=== PATIENT | female | born 1970 | race Caucasian/White ===

== ENCOUNTER 2019-01-19 11:34 | Inpatient (IN) | payer MEDICARE, OTHER ==
[~2019-01-19] VITALS: Ht 160 cm; Wt 56.2 kg
[2019-01-19 12:39] LABS: BASOPHILS % (AUTO) 0.2 % (0.0-2.0); EOSINOPHILS % (AUTO) 0.1 % (1.0-6.0); HEMATOCRIT 34.3 % (36-46); HEMOGLOBIN 11.9 g/dL (12.0-16.0); LYMPHOCYTES # (AUTO) 2.4 K/uL (1.0-4.8); LYMPHOCYTES % (AUTO) 21.2 % (22.0-44.0); MEAN CORPUSCULAR HEMOGLOBIN 33.8 pg (26.0-34.0); MEAN CORPUSCULAR HGB CONC 34.7 G/dL (31.0-37.0); MEAN CORPUSCULAR VOLUME 98 fL (80-100); MONOCYTES # (AUTO) 0.8 K/uL (0.1-1.0); MONOCYTES % (AUTO) 7.4 % (2.0-9.0); NEUTROPHILS # (AUTO) 8.1 K/uL (1.8-7.7); NEUTROPHILS % (AUTO) 71.1 % (40.0-70.0); PLATELET COUNT (AUTO) 263 K/uL (150-450); RED BLOOD CELL COUNT(AUTO) 3.52 MIL/uL (4.00-5.20); RED CELL DISTRIBUTION WIDTH 12.5 % (11.5-14.5)
[2019-01-19 13:07] LABS: ALANINE AMINOTRANSFERASE 21 U/L (12-78); ALBUMIN 3.2 g/dL (3.4-5.0); ANION GAP 12 mmol/L (8-16); ASPARTATE AMINOTRANSFERASE 31 U/L (15-37); BILIRUBIN,TOTAL 0.9 mg/dL (0.1-1.0); CALCIUM, TOTAL 8.4 mg/dL (8.8-10.5); CARBON DIOXIDE 23 mmol/L (22-29); CHLORIDE 87 mmol/L (98-107); GLOMERULAR FILTR. RATE CALC > 60 mL/min (>60); GLUCOSE,RANDOM 91 mg/dL (70-110); HCG,QUANTITATIVE < 1 mIU/mL (0-6); POTASSIUM 3.5 mmol/L (3.5-5.1); TOTAL PROTEIN, SERUM 6.1 g/dL (6.4-8.2); UREA NITROGEN, BLOOD 3 mg/dL (7-18)
[2019-01-19 13:09] LABS: SODIUM SERUM 122 mmol/L (136-145)
[2019-01-19] MEDS ORDERED: SODIUM CHLORIDE 0.9% 1,000 ML IV ONE (13:15)
[2019-01-19 13:20] LABS: ALKALINE PHOSPHATASE 49 U/L (46-116)
[2019-01-19 14:13] LABS: OSMOLALITY 256 mOS/kg (270-310)
[2019-01-19] MEDS ORDERED: ALBUTEROL SULFATE 2.5 MG/0.5 ML NEB SOLUTION NEB PRN ×2 (15:00→21:15)
[2019-01-19] MEDS ORDERED: MAGNESIUM HYDROXIDE SUSPENSION 30 ML UDCUP PO PRN (15:00)
[2019-01-19] MEDS ORDERED: DOCUSATE SODIUM 100 MG CAPSULE PO PRN (15:00)
[2019-01-19] MEDS ORDERED: 0.9% SODIUM CHLORIDE 10 ML SYRINGE IVP PRN (15:00)
[2019-01-19] MEDS ORDERED: IPRATROPIUM BROMIDE 0.5 MG/2.5 ML NEB SOLUTION NEB PRN ×2 (15:00→21:15)
[2019-01-19] MEDS ORDERED: BISACODYL 10 MG RECTAL RECTAL SUPPOSITORY PR PRN (15:00)
[2019-01-19] MEDS ORDERED: ACETAMINOPHEN 325 MG TABLET PO PRN (15:00)
[2019-01-19] MEDS ORDERED: ONDANSETRON HCL 4 MG/2 ML VIAL IVP PRN (15:00)
[2019-01-19 15:09] LABS: APPEARANCE,URINE CLOUDY (CLEAR); BILIRUBIN,URINE NEGATIVE (NEGATIVE); GLUCOSE, URINE (UA) NEGATIVE (NEGATIVE); KETONES,URINE 40 mg/dL (NEGATIVE); LEUKOCYTE ESTERASE ,URINE LARGE (NEGATIVE); NITRATE,URINE NEGATIVE (NEGATIVE); OCCULT BLOOD,URINE SMALL (NEGATIVE); PH,URINE 5.5 (5.0-8.0); PROTEIN,URINE NEGATIVE (NEGATIVE); UROBILINOGEN,URINE 0.2 mg/dL (<=1.0)
[2019-01-19 15:26] LABS: RBC,URINE 0-2 /HPF (0-2)
[2019-01-19 15:27] LABS: BACTERIA,URINE Few /HPF (None Seen); SQUAMOUS EPITHELIAL CELL,UR Few /LPF (None Seen)
[2019-01-19 15:36] LABS: OSMOLALITY,URINE 75 mOS/kg (50-1200)
[2019-01-19 15:42] LABS: SODIUM,URINE RANDOM 10 mmol/l (20-110)
[2019-01-19 15:54] LABS: AMPHET/METH SCREEN,URINE NEGATIVE (NEGATIVE); BARBITURATE SCREEN, URINE NEGATIVE (NEGATIVE); BENZODIAZEPINES SCREEN,URINE NEGATIVE (NEGATIVE); CANNABINOID SCREEN,URINE NEGATIVE (NEGATIVE); COCAINE SCREEN,URINE NEGATIVE (NEGATIVE); METHADONE SCREEN, URINE NEGATIVE (NEGATIVE); OPIATE SCREEN,URINE NEGATIVE (NEGATIVE)
[2019-01-19 16:12] VITALS: BP 108/57
[2019-01-19 16:17] LABS: PHENCYCLIDINE SCREEN,URINE NEGATIVE (NEGATIVE)
[2019-01-19 17:19] LABS: ANION GAP 9 mmol/L (8-16); CALCIUM, TOTAL 8.7 mg/dL (8.8-10.5); CARBON DIOXIDE 26 mmol/L (22-29); CHLORIDE 95 mmol/L (98-107); CREATININE 0.66 mg/dL (0.60-1.30); GLOMERULAR FILTR. RATE CALC > 60 mL/min (>60); GLUCOSE,RANDOM 91 mg/dL (70-110); POTASSIUM 3.6 mmol/L (3.5-5.1); SODIUM SERUM 130 mmol/L (136-145); UREA NITROGEN, BLOOD 3 mg/dL (7-18)
[2019-01-19 17:23] LABS: PHOSPHORUS 3.4 mg/dL (2.5-4.9)
[2019-01-19] MEDS ORDERED: MAGNESIUM SULFATE 4 GM/WATER 100 ML IV ONE (18:15)
[2019-01-19 20:02] VITALS: BP 112/62
[2019-01-19] MEDS ORDERED: DEXTROSE 5%-WATER 1,000 ML IV SCH (20:27)
[2019-01-19] MEDS: FAMOTIDINE 20 MG TABLET PO SCH (22:28)
[2019-01-20] VITALS: BP 99/41
[2019-01-20] MEDS ORDERED: POTASSIUM CHL 10 MEQ/WATER 50 ML IV PRN (03:00)
[2019-01-20 03:06] LABS: ANION GAP 6 mmol/L (8-16); CALCIUM, TOTAL 8.7 mg/dL (8.8-10.5); CARBON DIOXIDE 28 mmol/L (22-29); CHLORIDE 99 mmol/L (98-107); CREATININE 0.61 mg/dL (0.60-1.30); GLOMERULAR FILTR. RATE CALC > 60 mL/min (>60); GLUCOSE,RANDOM 135 mg/dL (70-110); POTASSIUM 3.4 mmol/L (3.5-5.1); SODIUM SERUM 133 mmol/L (136-145); UREA NITROGEN, BLOOD 2 mg/dL (7-18)
[2019-01-20] MEDS ORDERED: POTASSIUM CHLORIDE 20 MEQ ER TABLET PO PRN (03:15)
[2019-01-20] MEDS: DEXTROSE 5%-WATER 1,000 ML IV SCH ×4 (03:18→22:39)
[2019-01-20] MEDS: POTASSIUM CHL 10 MEQ/WATER 50 ML IV PRN ×3 (03:43→06:41)
[2019-01-20 05:29] VITALS: BP 92/54
[2019-01-20 07:41] LABS: BASOPHILS % (AUTO) 0.3 % (0.0-2.0); EOSINOPHILS % (AUTO) 0.5 % (1.0-6.0); HEMATOCRIT 34.9 % (36-46); HEMOGLOBIN 12.3 g/dL (12.0-16.0); LYMPHOCYTES # (AUTO) 1.9 K/uL (1.0-4.8); LYMPHOCYTES % (AUTO) 21.4 % (22.0-44.0); MEAN CORPUSCULAR HEMOGLOBIN 34.3 pg (26.0-34.0); MEAN CORPUSCULAR HGB CONC 35.2 G/dL (31.0-37.0); MEAN CORPUSCULAR VOLUME 97 fL (80-100); MONOCYTES % (AUTO) 11.8 % (2.0-9.0); NEUTROPHILS # (AUTO) 5.8 K/uL (1.8-7.7); PLATELET COUNT (AUTO) 320 K/uL (150-450); RED BLOOD CELL COUNT(AUTO) 3.59 MIL/uL (4.00-5.20)
[2019-01-20 07:43] VITALS: BP 93/56
[2019-01-20 08:07] LABS: ALANINE AMINOTRANSFERASE 19 U/L (12-78); ALBUMIN 2.7 g/dL (3.4-5.0); ALKALINE PHOSPHATASE 46 U/L (46-116); ANION GAP 6 mmol/L (8-16); ASPARTATE AMINOTRANSFERASE 31 U/L (15-37); BILIRUBIN,TOTAL 0.5 mg/dL (0.1-1.0); CALCIUM, TOTAL 8.3 mg/dL (8.8-10.5); CARBON DIOXIDE 27 mmol/L (22-29); CHLORIDE 101 mmol/L (98-107); CHOL/HDL RATIO 2.3 (3.9-5.7); CHOLESTEROL 131 mg/dL (131-200); CREATININE 0.59 mg/dL (0.60-1.30); FREE T4 (FREE THYROXINE) 1.13 ng/dL (0.76-1.46); GLOMERULAR FILTR. RATE CALC > 60 mL/min (>60); GLUCOSE,RANDOM 134 mg/dL (70-110); HDL CHOLESTEROL 58 mg/dL (40-60); LDL CHOL (CALC.) 65 mg/dL (0-130); PHOSPHORUS 2.8 mg/dL (2.5-4.9); SODIUM SERUM 134 mmol/L (136-145); THYROID STIMULATING HORMONE 1.57 uIU/mL (0.36-3.74); TOTAL PROTEIN, SERUM 5.7 g/dL (6.4-8.2); TRIGLYCERIDES 41 mg/dL (15-150); UREA NITROGEN, BLOOD 2 mg/dL (7-18)
[2019-01-20] MEDS: FAMOTIDINE 20 MG TABLET PO SCH ×2 (08:29→20:31)
[2019-01-20 11:02] VITALS: BP 96/58
[2019-01-20] MEDS ORDERED: DEXTROSE 5%-WATER 1,000 ML IV SCH (13:15)
[2019-01-20 14:35] LABS: ANION GAP 7 mmol/L (8-16); CALCIUM, TOTAL 8.5 mg/dL (8.8-10.5); CARBON DIOXIDE 27 mmol/L (22-29); CHLORIDE 102 mmol/L (98-107); CREATININE 0.56 mg/dL (0.60-1.30); GLOMERULAR FILTR. RATE CALC > 60 mL/min (>60); GLUCOSE,RANDOM 82 mg/dL (70-110); POTASSIUM 4.1 mmol/L (3.5-5.1); SODIUM SERUM 136 mmol/L (136-145); UREA NITROGEN, BLOOD 2 mg/dL (7-18)
[2019-01-20 16:04] VITALS: BP 117/61
[2019-01-20 20:23] VITALS: BP 94/56
[2019-01-21] MEDS: DEXTROSE 5%-WATER 1,000 ML IV SCH ×4 (00:30→19:56)
[2019-01-21 00:53] VITALS: BP 114/52
[2019-01-21 04:46] VITALS: BP 108/66
[2019-01-21 07:40] VITALS: BP 105/48
[2019-01-21 08:53] LABS: BASOPHILS % (AUTO) 0.5 % (0.0-2.0); EOSINOPHILS % (AUTO) 1.6 % (1.0-6.0); HEMATOCRIT 36.1 % (36-46); HEMOGLOBIN 12.7 g/dL (12.0-16.0); LYMPHOCYTES # (AUTO) 2.4 K/uL (1.0-4.8); MEAN CORPUSCULAR HGB CONC 35.1 G/dL (31.0-37.0); MEAN CORPUSCULAR VOLUME 100 fL (80-100); MONOCYTES # (AUTO) 0.8 K/uL (0.1-1.0); MONOCYTES % (AUTO) 11.8 % (2.0-9.0); NEUTROPHILS # (AUTO) 3.6 K/uL (1.8-7.7); NEUTROPHILS % (AUTO) 51.1 % (40.0-70.0); PLATELET COUNT (AUTO) 328 K/uL (150-450); RED BLOOD CELL COUNT(AUTO) 3.62 MIL/uL (4.00-5.20); RED CELL DISTRIBUTION WIDTH 13.2 % (11.5-14.5)
[2019-01-21 09:34] LABS: ANION GAP 9 mmol/L (8-16); CALCIUM, TOTAL 8.6 mg/dL (8.8-10.5); CARBON DIOXIDE 28 mmol/L (22-29); CHLORIDE 103 mmol/L (98-107); CREATININE 0.65 mg/dL (0.60-1.30); GLOMERULAR FILTR. RATE CALC > 60 mL/min (>60); GLUCOSE,RANDOM 178 mg/dL (70-110); POTASSIUM 3.7 mmol/L (3.5-5.1); SODIUM SERUM 140 mmol/L (136-145); UREA NITROGEN, BLOOD 2 mg/dL (7-18)
[2019-01-21] MEDS: FAMOTIDINE 20 MG TABLET PO SCH ×2 (10:34→19:56)
[2019-01-21 11:40] VITALS: BP 102/66
[2019-01-21 15:26] LABS: CARBON DIOXIDE 25 mmol/L (22-29); CHLORIDE 103 mmol/L (98-107); POTASSIUM 3.8 mmol/L (3.5-5.1); SODIUM SERUM 136 mmol/L (136-145)
[2019-01-21 15:27] LABS: ANION GAP 8 mmol/L (8-16); CALCIUM, TOTAL 9.1 mg/dL (8.8-10.5); CREATININE 0.47 mg/dL (0.60-1.30); GLOMERULAR FILTR. RATE CALC > 60 mL/min (>60); GLUCOSE,RANDOM 116 mg/dL (70-110); UREA NITROGEN, BLOOD 4 mg/dL (7-18)
[2019-01-21] MEDS ORDERED: PROM118S4 PO (15:57)
[2019-01-21] MEDS ORDERED: CLOZ25TA4 PO (15:57)
[2019-01-21] MEDS ORDERED: DIVA-54 PO (15:57)
[2019-01-21] MEDS ORDERED: HALO20TA7 PO (15:57)
[2019-01-21] MEDS ORDERED: LUTE20TA PO (15:57)
[2019-01-21] MEDS ORDERED: CLOZ100T31 PO (15:57)
[2019-01-21] MEDS ORDERED: GLYC1TAB11 PO (15:57)
[2019-01-21 16:15] VITALS: BP 107/64
[2019-01-21 19:46] VITALS: BP 101/59
[2019-01-21 20:37] LABS: ANION GAP 7 mmol/L (8-16); CALCIUM, TOTAL 8.8 mg/dL (8.8-10.5); CARBON DIOXIDE 28 mmol/L (22-29); CHLORIDE 107 mmol/L (98-107); CREATININE 0.43 mg/dL (0.60-1.30); GLOMERULAR FILTR. RATE CALC > 60 mL/min (>60); GLUCOSE,RANDOM 99 mg/dL (70-110); SODIUM SERUM 142 mmol/L (136-145); UREA NITROGEN, BLOOD 4 mg/dL (7-18)
[2019-01-22] VITALS (7 sets, daily range): BP systolic 97–118; BP diastolic 54–72
[2019-01-22 07:45] LABS: BASOPHILS % (AUTO) 0.7 % (0.0-2.0); HEMOGLOBIN 12.4 g/dL (12.0-16.0); LYMPHOCYTES # (AUTO) 2.5 K/uL (1.0-4.8); LYMPHOCYTES % (AUTO) 31.8 % (22.0-44.0); MEAN CORPUSCULAR HEMOGLOBIN 34.4 pg (26.0-34.0); MEAN CORPUSCULAR HGB CONC 34.4 G/dL (31.0-37.0); MEAN CORPUSCULAR VOLUME 100 fL (80-100); MONOCYTES # (AUTO) 0.8 K/uL (0.1-1.0); MONOCYTES % (AUTO) 10.3 % (2.0-9.0); NEUTROPHILS # (AUTO) 4.5 K/uL (1.8-7.7); NEUTROPHILS % (AUTO) 56.2 % (40.0-70.0); PLATELET COUNT (AUTO) 335 K/uL (150-450); RED CELL DISTRIBUTION WIDTH 13.3 % (11.5-14.5)
[2019-01-22 08:39] LABS: ANION GAP 8 mmol/L (8-16); CARBON DIOXIDE 25 mmol/L (22-29); CHLORIDE 109 mmol/L (98-107); CREATININE 0.52 mg/dL (0.60-1.30); GLOMERULAR FILTR. RATE CALC > 60 mL/min (>60); GLUCOSE,RANDOM 113 mg/dL (70-110); POTASSIUM 4.1 mmol/L (3.5-5.1); SODIUM SERUM 142 mmol/L (136-145); UREA NITROGEN, BLOOD 3 mg/dL (7-18)
[2019-01-22] MEDS: FAMOTIDINE 20 MG TABLET PO SCH ×3 (08:57→20:30)
[2019-01-22] MEDS: DEXTROSE 5%-WATER 1,000 ML IV SCH (15:07)
[2019-01-22] MEDS: DIVALPROEX SODIUM 500 MG DR TABLET PO SCH ×4 (16:00→20:30)
[2019-01-22] MEDS: CloZAPine 25 MG TABLET PO SCH ×3 (16:33→20:30)
[2019-01-22] MEDS: CloZAPine 100 MG TABLET PO SCH ×2 (20:23→20:30)
[2019-01-23 05:40] VITALS: BP 125/67
[2019-01-23 07:27] LABS: BASOPHILS % (AUTO) 0.3 % (0.0-2.0); EOSINOPHILS % (AUTO) 0.9 % (1.0-6.0); HEMATOCRIT 35.6 % (36-46); HEMOGLOBIN 12.3 g/dL (12.0-16.0); LYMPHOCYTES # (AUTO) 2.8 K/uL (1.0-4.8); LYMPHOCYTES % (AUTO) 34.9 % (22.0-44.0); MEAN CORPUSCULAR HEMOGLOBIN 34.2 pg (26.0-34.0); MEAN CORPUSCULAR HGB CONC 34.5 G/dL (31.0-37.0); MEAN CORPUSCULAR VOLUME 99 fL (80-100); MONOCYTES # (AUTO) 0.7 K/uL (0.1-1.0); MONOCYTES % (AUTO) 8.7 % (2.0-9.0); NEUTROPHILS # (AUTO) 4.5 K/uL (1.8-7.7); NEUTROPHILS % (AUTO) 55.2 % (40.0-70.0); PLATELET COUNT (AUTO) 325 K/uL (150-450); RED BLOOD CELL COUNT(AUTO) 3.58 MIL/uL (4.00-5.20); RED CELL DISTRIBUTION WIDTH 13.2 % (11.5-14.5)
[2019-01-23 07:39] LABS: ANION GAP 8 mmol/L (8-16); CARBON DIOXIDE 27 mmol/L (22-29); CHLORIDE 104 mmol/L (98-107); CREATININE 0.51 mg/dL (0.60-1.30); GLOMERULAR FILTR. RATE CALC > 60 mL/min (>60); GLUCOSE,RANDOM 102 mg/dL (70-110); POTASSIUM 3.7 mmol/L (3.5-5.1); SODIUM SERUM 139 mmol/L (136-145); UREA NITROGEN, BLOOD 4 mg/dL (7-18)
[2019-01-23 07:55] VITALS: BP 108/56
[2019-01-23] MEDS: DIVALPROEX SODIUM 500 MG DR TABLET PO SCH ×3 (09:00→21:00)
[2019-01-23] MEDS: CloZAPine 25 MG TABLET PO SCH ×3 (09:00→17:00)
[2019-01-23] MEDS: FAMOTIDINE 20 MG TABLET PO SCH ×2 (09:00→21:00)
[2019-01-23 12:06] VITALS: BP 118/67
[2019-01-23 12:53] LABS: APPEARANCE,URINE CLOUDY (CLEAR); BILIRUBIN,URINE NEGATIVE (NEGATIVE); GLUCOSE, URINE (UA) NEGATIVE (NEGATIVE); KETONES,URINE NEGATIVE (NEGATIVE); LEUKOCYTE ESTERASE ,URINE LARGE (NEGATIVE); NITRATE,URINE POSITIVE (NEGATIVE); OCCULT BLOOD,URINE SMALL (NEGATIVE); PH,URINE 6.5 (5.0-8.0); PROTEIN,URINE NEGATIVE (NEGATIVE); UROBILINOGEN,URINE 0.2 mg/dL (<=1.0)
[2019-01-23 13:45] LABS: BACTERIA,URINE Moderate /HPF (None Seen); WBC,URINE 26-50 /HPF (0-5)
[2019-01-23 13:46] LABS: SQUAMOUS EPITHELIAL CELL,UR Moderate /LPF (None Seen)
[2019-01-23] MEDS ORDERED: LORazepam 2 MG/ML VIAL IVP PRN (15:30)
[2019-01-23] MEDS ORDERED: LORazepam 2 MG/ML VIAL IM ONE (16:00)
[2019-01-23] MEDS ORDERED: DiphenhydrAMINE HCL 50 MG/ML VIAL IM ONE (16:00)
[2019-01-23] MEDS ORDERED: HALOPERIDOL LACTATE 5 MG/ML VIAL IM ONE (16:00)
[2019-01-23 16:35] VITALS: BP 114/75
[2019-01-23 19:30] VITALS: BP 116/71
[2019-01-23] MEDS: CloZAPine 100 MG TABLET PO SCH (21:00)
[2019-01-23 23:03] VITALS: BP 108/69
[2019-01-24 05:00] VITALS: BP 100/64
[2019-01-24] MEDS: CloZAPine 25 MG TABLET PO SCH ×4 (08:35→15:53)
[2019-01-24] MEDS: DIVALPROEX SODIUM 500 MG DR TABLET PO SCH ×3 (08:35→15:53)
[2019-01-24] MEDS: FAMOTIDINE 20 MG TABLET PO SCH (08:35)
[2019-01-24 08:47] VITALS: BP 107/67
[2019-01-24] MEDS ORDERED: CIPROFLOXACIN HCL 500 MG TABLET PO SCH (09:00)
[2019-01-24 11:40] VITALS: BP 110/64
[2019-01-24] MEDS ORDERED: LORazepam 2 MG/ML VIAL IM ONE (15:45)
[2019-01-24] MEDS ORDERED: DiphenhydrAMINE HCL 50 MG/ML VIAL IM ONE (15:45)
[2019-01-24] MEDS ORDERED: HALOPERIDOL LACTATE 5 MG/ML VIAL IM ONE (15:45)
[2019-01-24 16:13] VITALS: BP 107/65
[2019-01-24] MEDS ORDERED: FAMO20 PO (17:22)
== END 2019-01-24 18:35 | DRG 640 ==
LOC: EMS 11:36 → 5S 14:47
PROVIDERS: ADMIT Internal Medicine; ATTEND Internal Medicine
DX: E87.1 Hypo-osmolality and hyponatremia (principal); G92 Toxic encephalopathy; R45.851 Suicidal ideations; R65.10 Systemic inflammatory response syndrome (SIRS) of non-infectious origin without acute organ dysfunction; F20.0 Paranoid schizophrenia; E86.1 Hypovolemia; F20.9 Schizophrenia, unspecified; D63.8 Anemia in other chronic diseases classified elsewhere; F41.9 Anxiety disorder, unspecified
CPT/HCPCS: 70450; 82533; 83735; 83930; 83935; 84100; 84132; 84145; 84295; 84300; 84439; 84443; 87086; 93005; 96365; G0378; G0480; J1200; J1630; J2060; J3475; J3480; J7060

== ENCOUNTER 2019-01-24 18:45 | Inpatient (IN) | payer MEDICARE, MEDICAID ==
[~2019-01-24] VITALS: Ht 160 cm; Wt 58.8 kg
[~2019-01-24 18:45] MED LIST: CLOZ100T31 PO; CLOZ25TA4 PO; DIVA-54 PO; FAMO20 PO; GLYC1TAB11 PO; HALO20TA7 PO; LUTE20TA PO; PROM118S4 PO
[2019-01-24] MEDS: CloZAPine 100 MG TABLET PO SCH (20:38)
[2019-01-24] MEDS: DIVALPROEX SODIUM 500 MG DR TABLET PO SCH (20:38)
[2019-01-24] MEDS ORDERED: INFLUENZA VIRUS VACCINE QVS 2019-20 (3YR+)/PF 60 MCG/0.5 ML SYRINGE IM ONE (21:15)
[2019-01-25 08:00] VITALS: BP 113/84
[2019-01-25] MEDS: CloZAPine 25 MG TABLET PO SCH ×3 (09:00→17:00)
[2019-01-25] MEDS: DIVALPROEX SODIUM 500 MG DR TABLET PO SCH ×3 (09:00→17:00)
[2019-01-25] MEDS ORDERED: NITROFURANTOIN/NITROFURAN MAC 100 MG CAPSULE [MACROBID] PO SCH (10:30)
[2019-01-25] MEDS: CEPHALEXIN MONOHYDRATE 500 MG CAPSULE PO SCH ×2 (17:00→21:00)
[2019-01-25 20:27] VITALS: BP 107/72
[2019-01-25] MEDS: CloZAPine 100 MG TABLET PO SCH (21:00)
[2019-01-26] MEDS: CloZAPine 25 MG TABLET PO SCH ×3 (09:00→16:30)
[2019-01-26] MEDS: DIVALPROEX SODIUM 500 MG DR TABLET PO SCH ×3 (09:00→16:30)
[2019-01-26] MEDS: CEPHALEXIN MONOHYDRATE 500 MG CAPSULE PO SCH ×4 (09:00→21:00)
[2019-01-26 12:44] VITALS: BP 104/63
[2019-01-26 16:59] VITALS: BP 115/74
[2019-01-26] MEDS: CloZAPine 100 MG TABLET PO SCH (21:00)
[2019-01-27 02:39] VITALS: BP 107/69
[2019-01-27] MEDS: CloZAPine 25 MG TABLET PO SCH ×3 (08:11→16:57)
[2019-01-27] MEDS: DIVALPROEX SODIUM 500 MG DR TABLET PO SCH ×3 (08:11→16:58)
[2019-01-27] MEDS: CEPHALEXIN MONOHYDRATE 500 MG CAPSULE PO SCH ×4 (08:11→20:46)
[2019-01-27] MEDS: LORazepam 2 MG TABLET PO PRN (09:58)
[2019-01-27 10:21] VITALS: BP 100/63
[2019-01-27 18:07] VITALS: BP 110/64
[2019-01-27] MEDS: CloZAPine 100 MG TABLET PO SCH (20:46)
[2019-01-28] MEDS: LORazepam 2 MG TABLET PO PRN ×2 (06:11→14:39)
[2019-01-28] MEDS: HALOPERIDOL 5 MG TABLET PO PRN ×2 (06:11→14:39)
[2019-01-28] MEDS: CEPHALEXIN MONOHYDRATE 500 MG CAPSULE PO SCH ×4 (08:24→21:04)
[2019-01-28] MEDS: DIVALPROEX SODIUM 500 MG DR TABLET PO SCH ×3 (08:24→16:34)
[2019-01-28] MEDS: CloZAPine 25 MG TABLET PO SCH ×3 (08:24→16:34)
[2019-01-28 09:38] VITALS: BP 101/62
[2019-01-28 16:05] VITALS: BP 110/73
[2019-01-28] MEDS: CloZAPine 100 MG TABLET PO SCH (21:04)
[2019-01-29] MEDS: LORazepam 2 MG TABLET PO PRN ×2 (00:34→12:49)
[2019-01-29] MEDS: HALOPERIDOL 5 MG TABLET PO PRN ×2 (00:34→16:17)
[2019-01-29 04:06] VITALS: BP 122/84
[2019-01-29] MEDS: CloZAPine 25 MG TABLET PO SCH ×3 (08:47→16:17)
[2019-01-29] MEDS: DIVALPROEX SODIUM 500 MG DR TABLET PO SCH ×3 (08:47→16:17)
[2019-01-29] MEDS: CEPHALEXIN MONOHYDRATE 500 MG CAPSULE PO SCH ×4 (08:47→20:23)
[2019-01-29 09:39] VITALS: BP 133/87
[2019-01-29 17:06] VITALS: BP 108/63
[2019-01-29] MEDS: CloZAPine 100 MG TABLET PO SCH (20:23)
[2019-01-30 04:17] VITALS: BP 132/79
[2019-01-30 07:10] LABS: BASOPHILS % (AUTO) 0.4 % (0.0-2.0); EOSINOPHILS % (AUTO) 1.8 % (1.0-6.0); HEMATOCRIT 35.6 % (36-46); HEMOGLOBIN 12.3 g/dL (12.0-16.0); LYMPHOCYTES # (AUTO) 2.9 K/uL (1.0-4.8); LYMPHOCYTES % (AUTO) 54.7 % (22.0-44.0); MEAN CORPUSCULAR HEMOGLOBIN 34.5 pg (26.0-34.0); MEAN CORPUSCULAR HGB CONC 34.5 G/dL (31.0-37.0); MEAN CORPUSCULAR VOLUME 100 fL (80-100); MONOCYTES # (AUTO) 0.5 K/uL (0.1-1.0); MONOCYTES % (AUTO) 9.2 % (2.0-9.0); NEUTROPHILS # (AUTO) 1.8 K/uL (1.8-7.7); NEUTROPHILS % (AUTO) 33.9 % (40.0-70.0); PLATELET COUNT (AUTO) 279 K/uL (150-450); RED BLOOD CELL COUNT(AUTO) 3.56 MIL/uL (4.00-5.20); RED CELL DISTRIBUTION WIDTH 13.3 % (11.5-14.5)
[2019-01-30 07:42] LABS: CALCIUM, TOTAL 8.7 mg/dL (8.8-10.5); CHLORIDE 108 mmol/L (98-107); CREATINE KINASE, TOTAL ONLY 25 U/L (26-192); GLOMERULAR FILTR. RATE CALC > 60 mL/min (>60); GLUCOSE,RANDOM 85 mg/dL (70-110); POTASSIUM 4.2 mmol/L (3.5-5.1); SODIUM SERUM 143 mmol/L (136-145); UREA NITROGEN, BLOOD 6 mg/dL (7-18)
[2019-01-30 07:48] LABS: ANION GAP 7 mmol/L (8-16); CARBON DIOXIDE 28 mmol/L (22-29)
[2019-01-30] MEDS: LORazepam 2 MG TABLET PO PRN (08:05)
[2019-01-30] MEDS: CloZAPine 25 MG TABLET PO SCH ×3 (08:05→16:56)
[2019-01-30] MEDS: DIVALPROEX SODIUM 500 MG DR TABLET PO SCH ×3 (08:05→16:56)
[2019-01-30] MEDS: CEPHALEXIN MONOHYDRATE 500 MG CAPSULE PO SCH ×2 (08:05→12:50)
[2019-01-30 08:30] VITALS: BP 109/65
[2019-01-30] MEDS: MAGNESIUM OXIDE 400 MG TABLET PO SCH (15:23)
[2019-01-30 17:00] VITALS: BP 130/85
[2019-01-30] MEDS: CloZAPine 100 MG TABLET PO SCH (21:08)
[2019-01-31 04:40] VITALS: BP 129/68
[2019-01-31 08:30] VITALS: BP 134/72
[2019-01-31] MEDS: CloZAPine 25 MG TABLET PO SCH ×3 (08:38→16:21)
[2019-01-31] MEDS: MAGNESIUM OXIDE 400 MG TABLET PO SCH (08:38)
[2019-01-31] MEDS: HALOPERIDOL 5 MG TABLET PO PRN (08:38)
[2019-01-31] MEDS: DIVALPROEX SODIUM 500 MG DR TABLET PO SCH ×3 (08:38→16:21)
[2019-01-31] MEDS: LORazepam 2 MG TABLET PO PRN (08:38)
[2019-01-31 16:20] VITALS: BP 115/76
[2019-01-31] MEDS: CloZAPine 100 MG TABLET PO SCH (20:37)
[2019-01-31 23:07] LABS: APPEARANCE,URINE CLEAR (CLEAR); BILIRUBIN,URINE NEGATIVE (NEGATIVE); GLUCOSE, URINE (UA) NEGATIVE (NEGATIVE); KETONES,URINE NEGATIVE (NEGATIVE); LEUKOCYTE ESTERASE ,URINE TRACE (NEGATIVE); NITRATE,URINE NEGATIVE (NEGATIVE); OCCULT BLOOD,URINE NEGATIVE (NEGATIVE); PROTEIN,URINE NEGATIVE (NEGATIVE); UROBILINOGEN,URINE 0.2 mg/dL (<=1.0)
[2019-01-31 23:24] LABS: BACTERIA,URINE None Seen /HPF (None Seen); RBC,URINE 0-2 /HPF (0-2); SQUAMOUS EPITHELIAL CELL,UR Moderate /LPF (None Seen); WBC,URINE 26-50 /HPF (0-5)
[2019-02-01 08:00] VITALS: BP 128/71
[2019-02-01] MEDS: CloZAPine 25 MG TABLET PO SCH ×3 (08:38→16:18)
[2019-02-01] MEDS: MAGNESIUM OXIDE 400 MG TABLET PO SCH (08:38)
[2019-02-01] MEDS: DIVALPROEX SODIUM 500 MG DR TABLET PO SCH ×3 (08:38→16:18)
[2019-02-01] MEDS: LORazepam 2 MG TABLET PO PRN ×2 (11:31→16:18)
[2019-02-01] MEDS: HALOPERIDOL 5 MG TABLET PO PRN (12:12)
[2019-02-01 16:15] VITALS: BP 129/73
[2019-02-01] MEDS: CloZAPine 100 MG TABLET PO SCH (20:17)
[2019-02-02 01:03] VITALS: BP 137/72
[2019-02-02] MEDS: LORazepam 2 MG TABLET PO PRN (05:30)
[2019-02-02] MEDS: HALOPERIDOL 5 MG TABLET PO PRN (05:30)
[2019-02-02 09:00] VITALS: BP 125/81
[2019-02-02] MEDS: DIVALPROEX SODIUM 500 MG DR TABLET PO SCH ×3 (09:17→16:37)
[2019-02-02] MEDS: CloZAPine 25 MG TABLET PO SCH ×3 (09:17→16:36)
[2019-02-02] MEDS: MAGNESIUM OXIDE 400 MG TABLET PO SCH ×2 (09:18→16:37)
[2019-02-02 17:00] VITALS: BP 110/61
[2019-02-02] MEDS: CloZAPine 100 MG TABLET PO SCH (21:03)
[2019-02-03] MEDS: HALOPERIDOL 5 MG TABLET PO PRN ×2 (00:23→05:42)
[2019-02-03] MEDS: LORazepam 2 MG TABLET PO PRN ×2 (00:24→05:42)
[2019-02-03 00:43] VITALS: BP 121/67
[2019-02-03 06:00] LABS: MAGNESIUM 1.7 mg/dL (1.80-2.40)
[2019-02-03 08:00] VITALS: BP 119/72
[2019-02-03] MEDS: MAGNESIUM OXIDE 400 MG TABLET PO SCH ×2 (08:35→16:04)
[2019-02-03] MEDS: CloZAPine 25 MG TABLET PO SCH ×3 (08:35→16:04)
[2019-02-03] MEDS: DIVALPROEX SODIUM 500 MG DR TABLET PO SCH ×3 (08:35→16:04)
[2019-02-03 16:33] VITALS: BP 114/71
[2019-02-03] MEDS: CloZAPine 100 MG TABLET PO SCH (20:03)
[2019-02-04 01:35] VITALS: BP 108/67
[2019-02-04] MEDS: HALOPERIDOL 5 MG TABLET PO PRN ×2 (01:37→08:57)
[2019-02-04] MEDS: LORazepam 2 MG TABLET PO PRN ×3 (01:37→20:25)
[2019-02-04] MEDS: DIVALPROEX SODIUM 500 MG DR TABLET PO SCH ×3 (08:56→16:51)
[2019-02-04] MEDS: MAGNESIUM OXIDE 400 MG TABLET PO SCH ×2 (08:56→16:51)
[2019-02-04] MEDS: CloZAPine 25 MG TABLET PO SCH ×3 (08:57→16:50)
[2019-02-04 09:39] VITALS: BP 107/62
[2019-02-04 17:00] VITALS: BP 120/71
[2019-02-04] MEDS: CloZAPine 100 MG TABLET PO SCH (20:25)
[2019-02-05] MEDS: ZOLPIDEM TARTRATE 10 MG TABLET PO PRN (00:14)
[2019-02-05 00:56] VITALS: BP 117/73
[2019-02-05] MEDS: LORazepam 2 MG TABLET PO PRN ×3 (04:24→21:27)
[2019-02-05] MEDS: HALOPERIDOL 5 MG TABLET PO PRN ×3 (04:24→21:27)
[2019-02-05] MEDS: CloZAPine 25 MG TABLET PO SCH ×3 (08:58→16:32)
[2019-02-05] MEDS: DIVALPROEX SODIUM 500 MG DR TABLET PO SCH ×3 (08:58→16:33)
[2019-02-05] MEDS: MAGNESIUM OXIDE 400 MG TABLET PO SCH ×2 (08:59→16:33)
[2019-02-05 09:07] VITALS: BP 137/79
[2019-02-05 19:31] VITALS: BP 104/57
[2019-02-05] MEDS: CloZAPine 100 MG TABLET PO SCH (20:42)
[2019-02-06 03:26] VITALS: BP 111/59
[2019-02-06] MEDS: HALOPERIDOL 5 MG TABLET PO PRN ×2 (04:02→17:59)
[2019-02-06] MEDS: LORazepam 2 MG TABLET PO PRN ×2 (04:02→17:59)
[2019-02-06 06:02] LABS: BASOPHILS % (AUTO) 0.3 % (0.0-2.0); EOSINOPHILS % (AUTO) 1.2 % (1.0-6.0); HEMATOCRIT 32.3 % (36-46); HEMOGLOBIN 11.3 g/dL (12.0-16.0); LYMPHOCYTES % (AUTO) 44.7 % (22.0-44.0); MEAN CORPUSCULAR HEMOGLOBIN 34.8 pg (26.0-34.0); MEAN CORPUSCULAR HGB CONC 34.8 G/dL (31.0-37.0); MEAN CORPUSCULAR VOLUME 100 fL (80-100); NEUTROPHILS # (AUTO) 3.8 K/uL (1.8-7.7); NEUTROPHILS % (AUTO) 42.8 % (40.0-70.0); PLATELET COUNT (AUTO) 252 K/uL (150-450); RED BLOOD CELL COUNT(AUTO) 3.24 MIL/uL (4.00-5.20); RED CELL DISTRIBUTION WIDTH 13.2 % (11.5-14.5)
[2019-02-06 08:00] VITALS: BP 132/74
[2019-02-06] MEDS: CloZAPine 25 MG TABLET PO SCH ×3 (08:17→16:09)
[2019-02-06] MEDS: MAGNESIUM OXIDE 400 MG TABLET PO SCH ×2 (08:17→16:09)
[2019-02-06] MEDS: DIVALPROEX SODIUM 500 MG DR TABLET PO SCH ×3 (08:17→16:09)
[2019-02-06 16:50] VITALS: BP 100/60
[2019-02-06] MEDS: CloZAPine 100 MG TABLET PO SCH (20:42)
[2019-02-07] MEDS: ZOLPIDEM TARTRATE 10 MG TABLET PO PRN (00:12)
[2019-02-07 02:11] VITALS: BP 107/61
[2019-02-07 06:08] LABS: ANION GAP 4 mmol/L (8-16); CALCIUM, TOTAL 8.3 mg/dL (8.8-10.5); CARBON DIOXIDE 30 mmol/L (22-29); CHLORIDE 102 mmol/L (98-107); GLOMERULAR FILTR. RATE CALC > 60 mL/min (>60); GLUCOSE,RANDOM 94 mg/dL (70-110); POTASSIUM 4.2 mmol/L (3.5-5.1); SODIUM SERUM 136 mmol/L (136-145); UREA NITROGEN, BLOOD 21 mg/dL (7-18)
[2019-02-07 08:40] VITALS: BP 95/66
[2019-02-07] MEDS: DIVALPROEX SODIUM 500 MG DR TABLET PO SCH ×3 (09:33→17:06)
[2019-02-07] MEDS: MAGNESIUM OXIDE 400 MG TABLET PO SCH ×2 (09:33→17:07)
[2019-02-07] MEDS: CloZAPine 25 MG TABLET PO SCH ×3 (09:33→17:06)
[2019-02-07] MEDS: LORazepam 2 MG TABLET PO PRN ×2 (12:37→20:08)
[2019-02-07] MEDS: HALOPERIDOL 5 MG TABLET PO PRN ×2 (12:37→20:08)
[2019-02-07 16:10] VITALS: BP 125/76
[2019-02-07] MEDS: CloZAPine 100 MG TABLET PO SCH (20:37)
[2019-02-08] MEDS: HALOPERIDOL 5 MG TABLET PO PRN ×3 (03:01→13:38)
[2019-02-08] MEDS: LORazepam 2 MG TABLET PO PRN ×3 (03:01→13:38)
[2019-02-08 03:27] VITALS: BP 114/82
[2019-02-08 08:00] VITALS: BP 104/69
[2019-02-08] MEDS: CloZAPine 25 MG TABLET PO SCH ×2 (09:20→14:29)
[2019-02-08] MEDS: MAGNESIUM OXIDE 400 MG TABLET PO SCH (09:20)
[2019-02-08] MEDS: DIVALPROEX SODIUM 500 MG DR TABLET PO SCH ×2 (09:20→14:29)
[2019-02-08] MEDS ORDERED: MAGOX PO (10:47)
== END 2019-02-08 15:00 | disposition home or self-care (01) | DRG 885 ==
LOC: 3EX 18:45
PROVIDERS: ADMIT Psychiatry & Neurology Psychiatry; ATTEND Psychiatry & Neurology Psychiatry
DX: F20.0 Paranoid schizophrenia (principal); N39.0 Urinary tract infection, site not specified; E87.1 Hypo-osmolality and hyponatremia; E44.0 Moderate protein-calorie malnutrition; D64.9 Anemia, unspecified; E83.42 Hypomagnesemia; R45.87 Impulsiveness; E83.51 Hypocalcemia; Z91.19 Patient's noncompliance with other medical treatment and regimen; Z68.23 Body mass index [BMI] 23.0-23.9, adult; Z91.14 Patient's other noncompliance with medication regimen
CPT/HCPCS: 80159; 83735; 87081; 87086; G0378

== ENCOUNTER 2019-02-12 14:34 | Inpatient (IN) | payer MEDICARE, OTHER ==
[~2019-02-12] VITALS: Ht 162.6 cm; Wt 60.6 kg
[~2019-02-12 14:34] MED LIST changes: -FAMO20 PO; -GLYC1TAB11 PO; -HALO20TA7 PO; -LUTE20TA PO; +MAGOX PO; -PROM118S4 PO
[2019-02-12] MEDS ORDERED: GLYC1TAB11 PO (14:48)
[2019-02-12 15:22] LABS: BASOPHILS % (AUTO) 0.2 % (0.0-2.0); EOSINOPHILS % (AUTO) 0.2 % (1.0-6.0); HEMATOCRIT 30.4 % (36-46); HEMOGLOBIN 10.8 g/dL (12.0-16.0); LYMPHOCYTES # (AUTO) 2.8 K/uL (1.0-4.8); LYMPHOCYTES % (AUTO) 20.2 % (22.0-44.0); MEAN CORPUSCULAR HEMOGLOBIN 34.7 pg (26.0-34.0); MEAN CORPUSCULAR HGB CONC 35.5 G/dL (31.0-37.0); MEAN CORPUSCULAR VOLUME 98 fL (80-100); MONOCYTES # (AUTO) 1.9 K/uL (0.1-1.0); NEUTROPHILS # (AUTO) 9.1 K/uL (1.8-7.7); NEUTROPHILS % (AUTO) 65.4 % (40.0-70.0); PLATELET COUNT (AUTO) 312 K/uL (150-450); RED BLOOD CELL COUNT(AUTO) 3.11 MIL/uL (4.00-5.20)
[2019-02-12 15:46] LABS: ALANINE AMINOTRANSFERASE 49 U/L (12-78); ALBUMIN 2.9 g/dL (3.4-5.0); ALKALINE PHOSPHATASE 51 U/L (46-116); ANION GAP 10 mmol/L (8-16); ASPARTATE AMINOTRANSFERASE 113 U/L (15-37); BILIRUBIN,TOTAL 0.7 mg/dL (0.1-1.0); CALCIUM, TOTAL 7.4 mg/dL (8.8-10.5); CARBON DIOXIDE 21 mmol/L (22-29); CHLORIDE 77 mmol/L (98-107); CREATININE 0.49 mg/dL (0.60-1.30); GLOMERULAR FILTR. RATE CALC > 60 mL/min (>60); GLUCOSE,RANDOM 89 mg/dL (70-110); HCG,QUANTITATIVE < 1 mIU/mL (0-6); POTASSIUM 3.5 mmol/L (3.5-5.1); UREA NITROGEN, BLOOD 6 mg/dL (7-18)
[2019-02-12 15:49] LABS: SODIUM SERUM 108 mmol/L (136-145)
[2019-02-12] MEDS ORDERED: MIDAZOLAM HCL 2 MG/2 ML VIAL IVP ONE ×2 (16:00→16:45)
[2019-02-12] MEDS ORDERED: SODIUM CHLORIDE 3% 500 ML IV ONE ×3 (16:00→20:45)
[2019-02-12] MEDS ORDERED: ACETAMINOPHEN 325 MG TABLET PO PRN ×2 (17:30→20:45)
[2019-02-12] MEDS ORDERED: 0.9% SODIUM CHLORIDE 10 ML SYRINGE IVP PRN (17:30)
[2019-02-12] MEDS ORDERED: ONDANSETRON HCL 4 MG/2 ML VIAL IVP PRN (17:30)
[2019-02-12 17:46] LABS: ALANINE AMINOTRANSFERASE 50 U/L (12-78); ALKALINE PHOSPHATASE 51 U/L (46-116); ANION GAP 8 mmol/L (8-16); ASPARTATE AMINOTRANSFERASE 118 U/L (15-37); BILIRUBIN,TOTAL 0.8 mg/dL (0.1-1.0); CALCIUM, TOTAL 7.7 mg/dL (8.8-10.5); CARBON DIOXIDE 23 mmol/L (22-29); CHLORIDE 80 mmol/L (98-107); CREATININE 0.47 mg/dL (0.60-1.30); GLOMERULAR FILTR. RATE CALC > 60 mL/min (>60); GLUCOSE,RANDOM 82 mg/dL (70-110); POTASSIUM 3.6 mmol/L (3.5-5.1); TOTAL PROTEIN, SERUM 6.2 g/dL (6.4-8.2); UREA NITROGEN, BLOOD 6 mg/dL (7-18)
[2019-02-12 17:53] LABS: SODIUM SERUM 111 mmol/L (136-145)
[2019-02-12] MEDS ORDERED: LORazepam 2 MG/ML VIAL IVP ONE (20:00)
[2019-02-12] MEDS ORDERED: IBUPROFEN 400 MG TABLET PO PRN (20:45)
[2019-02-12] MEDS ORDERED: DESMOPRESSIN ACETATE 4 MCG/ML VIAL IVP ONE (21:45)
[2019-02-12 21:49] LABS: APPEARANCE,URINE CLOUDY (CLEAR); BILIRUBIN,URINE NEGATIVE (NEGATIVE); GLUCOSE, URINE (UA) NEGATIVE (NEGATIVE); KETONES,URINE 15 mg/dL (NEGATIVE); LEUKOCYTE ESTERASE ,URINE MODERATE (NEGATIVE); NITRATE,URINE NEGATIVE (NEGATIVE); OCCULT BLOOD,URINE SMALL (NEGATIVE); PH,URINE 6.5 (5.0-8.0); PROTEIN,URINE POS 1+ (NEGATIVE); UROBILINOGEN,URINE 0.2 mg/dL (<=1.0)
[2019-02-12 21:53] LABS: PROTEIN,URINE RANDOM 27 mg/dL (0-11.9); SODIUM,URINE RANDOM 9 mmol/l (20-110)
[2019-02-12 21:55] LABS: AMPHET/METH SCREEN,URINE NEGATIVE (NEGATIVE); BACTERIA,URINE Many /HPF (None Seen); BARBITURATE SCREEN, URINE NEGATIVE (NEGATIVE); BENZODIAZEPINES SCREEN,URINE POSITIVE (NEGATIVE); CANNABINOID SCREEN,URINE NEGATIVE (NEGATIVE); COCAINE SCREEN,URINE NEGATIVE (NEGATIVE); METHADONE SCREEN, URINE NEGATIVE (NEGATIVE); OPIATE SCREEN,URINE NEGATIVE (NEGATIVE); PHENCYCLIDINE SCREEN,URINE NEGATIVE (NEGATIVE); RBC,URINE 0-2 /HPF (0-2)
[2019-02-12 21:56] LABS: WBC,URINE 26-50 /HPF (0-5)
[2019-02-12 22:03] LABS: CREATININE,URINE RANDOM < 5.0 mg/dL (30.0-125.0)
[2019-02-12 22:06] LABS: ALANINE AMINOTRANSFERASE 47 U/L (12-78); ALBUMIN 2.9 g/dL (3.4-5.0); ALKALINE PHOSPHATASE 52 U/L (46-116); ANION GAP 9 mmol/L (8-16); ASPARTATE AMINOTRANSFERASE 120 U/L (15-37); BILIRUBIN,TOTAL 0.8 mg/dL (0.1-1.0); CALCIUM, TOTAL 8.2 mg/dL (8.8-10.5); CARBON DIOXIDE 25 mmol/L (22-29); CHLORIDE 91 mmol/L (98-107); CREATININE 0.56 mg/dL (0.60-1.30); GLOMERULAR FILTR. RATE CALC > 60 mL/min (>60); GLUCOSE,RANDOM 87 mg/dL (70-110); POTASSIUM 3.8 mmol/L (3.5-5.1); SODIUM SERUM 125 mmol/L (136-145); UREA NITROGEN, BLOOD 5 mg/dL (7-18)
[2019-02-12] MEDS: DEXTROSE 5%-WATER 1,000 ML IV SCH (23:01)
[2019-02-12 23:16] VITALS: BP 125/68
[2019-02-12 23:18] LABS: OSMOLALITY,URINE 60 mOS/kg (50-1200)
[2019-02-13] VITALS: BP 101/64
[2019-02-13] MEDS ORDERED: INFLUENZA VIRUS VACCINE QVS 2019-20 (3YR+)/PF 60 MCG/0.5 ML SYRINGE IM ONE (01:45)
[2019-02-13] MEDS ORDERED: PNEUMOCOCCAL VACCINE POLYVALENT 0.5 ML VIAL [PPSV23] IM ONE (01:45)
[2019-02-13 04:00] VITALS: BP 100/56
[2019-02-13 04:03] LABS: BASOPHILS % (AUTO) 0.3 % (0.0-2.0); EOSINOPHILS % (AUTO) 0.5 % (1.0-6.0); HEMATOCRIT 30.8 % (36-46); HEMOGLOBIN 10.9 g/dL (12.0-16.0); LYMPHOCYTES # (AUTO) 3.3 K/uL (1.0-4.8); LYMPHOCYTES % (AUTO) 33.7 % (22.0-44.0); MEAN CORPUSCULAR HEMOGLOBIN 34.7 pg (26.0-34.0); MEAN CORPUSCULAR HGB CONC 35.5 G/dL (31.0-37.0); MEAN CORPUSCULAR VOLUME 98 fL (80-100); MONOCYTES # (AUTO) 1.8 K/uL (0.1-1.0); NEUTROPHILS # (AUTO) 4.7 K/uL (1.8-7.7); NEUTROPHILS % (AUTO) 47.5 % (40.0-70.0); PLATELET COUNT (AUTO) 328 K/uL (150-450); RED BLOOD CELL COUNT(AUTO) 3.15 MIL/uL (4.00-5.20); RED CELL DISTRIBUTION WIDTH 13.2 % (11.5-14.5)
[2019-02-13] MEDS: LORazepam 2 MG/ML VIAL IVP PRN (04:15)
[2019-02-13 04:18] LABS: HEMOGLOBIN A1C 4.9 % (4.5-6.2)
[2019-02-13 04:33] LABS: ALANINE AMINOTRANSFERASE 47 U/L (12-78); ALBUMIN 2.6 g/dL (3.4-5.0); ALKALINE PHOSPHATASE 48 U/L (46-116); ANION GAP 7 mmol/L (8-16); ASPARTATE AMINOTRANSFERASE 86 U/L (15-37); BILIRUBIN,TOTAL 0.5 mg/dL (0.1-1.0); CALCIUM, TOTAL 7.6 mg/dL (8.8-10.5); CARBON DIOXIDE 24 mmol/L (22-29); CHLORIDE 90 mmol/L (98-107); CHOL/HDL RATIO 2.2 (3.9-5.7); CHOLESTEROL 126 mg/dL (131-200); CREATININE 0.46 mg/dL (0.60-1.30); GLOMERULAR FILTR. RATE CALC > 60 mL/min (>60); GLUCOSE,RANDOM 127 mg/dL (70-110); HDL CHOLESTEROL 57 mg/dL (40-60); LDL CHOL (CALC.) 60 mg/dL (0-130); POTASSIUM 3.6 mmol/L (3.5-5.1); TOTAL PROTEIN, SERUM 5.1 g/dL (6.4-8.2); TRIGLYCERIDES 43 mg/dL (15-150); UREA NITROGEN, BLOOD 5 mg/dL (7-18)
[2019-02-13 04:36] LABS: SODIUM SERUM 121 mmol/L (136-145)
[2019-02-13] MEDS: DESMOPRESSIN ACETATE 4 MCG/ML VIAL IVP SCH ×3 (05:56→15:28)
[2019-02-13] MEDS ORDERED: DESMOPRESSIN ACETATE 4 MCG/ML VIAL IVP ONE (06:00)
[2019-02-13] MEDS: DEXTROSE 5%-WATER 1,000 ML IV SCH ×2 (06:49→15:29)
[2019-02-13 08:00] VITALS: BP 102/63
[2019-02-13] MEDS: CefTRIAXone 1 GM/DEXTROSE 50 ML IV SCH (09:58)
[2019-02-13 10:20] LABS: ANION GAP 6 mmol/L (8-16); CALCIUM, TOTAL 7.8 mg/dL (8.8-10.5); CARBON DIOXIDE 25 mmol/L (22-29); CHLORIDE 90 mmol/L (98-107); CREATININE 0.61 mg/dL (0.60-1.30); GLOMERULAR FILTR. RATE CALC > 60 mL/min (>60); GLUCOSE,RANDOM 101 mg/dL (70-110); POTASSIUM 3.5 mmol/L (3.5-5.1); UREA NITROGEN, BLOOD 5 mg/dL (7-18)
[2019-02-13 10:21] LABS: SODIUM SERUM 121 mmol/L (136-145)
[2019-02-13 12:00] VITALS: BP 109/61
[2019-02-13] MEDS ORDERED: DIGOXIN 250 MCG/ML 2 ML AMP IVP ONE (13:15)
[2019-02-13 16:00] VITALS: BP 111/64
[2019-02-13 16:34] LABS: ANION GAP 6 mmol/L (8-16); CALCIUM, TOTAL 7.8 mg/dL (8.8-10.5); CARBON DIOXIDE 25 mmol/L (22-29); CHLORIDE 88 mmol/L (98-107); CREATININE 0.57 mg/dL (0.60-1.30); GLOMERULAR FILTR. RATE CALC > 60 mL/min (>60); GLUCOSE,RANDOM 108 mg/dL (70-110); POTASSIUM 3.9 mmol/L (3.5-5.1); UREA NITROGEN, BLOOD 9 mg/dL (7-18)
[2019-02-13 16:38] LABS: SODIUM SERUM 119 mmol/L (136-145)
[2019-02-13 20:00] VITALS: BP 137/53
[2019-02-13] MEDS: SODIUM CHLORIDE 3% 500 ML IV SCH (20:42)
[2019-02-14] VITALS: BP 129/68
[2019-02-14] MEDS: LORazepam 2 MG/ML VIAL IVP PRN (01:49)
[2019-02-14 04:00] VITALS: BP 93/57
[2019-02-14] MEDS: DESMOPRESSIN ACETATE 4 MCG/ML VIAL IVP SCH ×2 (06:24→18:05)
[2019-02-14 08:00] VITALS: BP 130/68
[2019-02-14 08:17] LABS: ANION GAP 8 mmol/L (8-16); CALCIUM, TOTAL 8.1 mg/dL (8.8-10.5); CARBON DIOXIDE 23 mmol/L (22-29); CHLORIDE 89 mmol/L (98-107); CREATININE 0.52 mg/dL (0.60-1.30); GLOMERULAR FILTR. RATE CALC > 60 mL/min (>60); GLUCOSE,RANDOM 102 mg/dL (70-110); POTASSIUM 4.1 mmol/L (3.5-5.1); THYROID STIMULATING HORMONE 3.93 uIU/mL (0.36-3.74); UREA NITROGEN, BLOOD 9 mg/dL (7-18)
[2019-02-14 08:18] LABS: SODIUM SERUM 120 mmol/L (136-145)
[2019-02-14] MEDS: CefTRIAXone 1 GM/DEXTROSE 50 ML IV SCH (08:46)
[2019-02-14] MEDS ORDERED: CloZAPine 25 MG TABLET PO ONE (11:00)
[2019-02-14 12:00] VITALS: BP 102/58
[2019-02-14 13:18] LABS: FREE T4 (FREE THYROXINE) 1.12 ng/dL (0.76-1.46)
[2019-02-14 16:00] VITALS: BP 102/65
[2019-02-14] MEDS: CloZAPine 25 MG TABLET PO SCH (16:42)
[2019-02-14] MEDS: SODIUM CHLORIDE 3% 500 ML IV SCH (16:42)
[2019-02-14 20:00] VITALS: BP 109/67
[2019-02-14] MEDS: CloZAPine 100 MG TABLET PO SCH (21:08)
[2019-02-15] VITALS (7 sets, daily range): BP systolic 91–138; BP diastolic 51–83
[2019-02-15] MEDS: CloZAPine 25 MG TABLET PO SCH ×4 (00:50→20:54)
[2019-02-15] MEDS: DESMOPRESSIN ACETATE 4 MCG/ML VIAL IVP SCH (05:36)
[2019-02-15 08:39] LABS: ANION GAP 6 mmol/L (8-16); CALCIUM, TOTAL 8.1 mg/dL (8.8-10.5); CARBON DIOXIDE 25 mmol/L (22-29); CHLORIDE 92 mmol/L (98-107); GLOMERULAR FILTR. RATE CALC > 60 mL/min (>60); GLUCOSE,RANDOM 91 mg/dL (70-110); POTASSIUM 4.2 mmol/L (3.5-5.1); UREA NITROGEN, BLOOD 6 mg/dL (7-18)
[2019-02-15 08:41] LABS: SODIUM SERUM 123 mmol/L (136-145)
[2019-02-15] MEDS ORDERED: SODIUM CHLORIDE 0.9% 250 ML IV ONE (09:04)
[2019-02-15] MEDS: CefTRIAXone 1 GM/DEXTROSE 50 ML IV SCH (09:45)
[2019-02-15] MEDS: SODIUM CHLORIDE 3% 500 ML IV SCH (15:33)
[2019-02-15] MEDS: LORazepam 2 MG/ML VIAL IVP PRN (15:40)
[2019-02-15] MEDS: CloZAPine 100 MG TABLET PO SCH (20:45)
[2019-02-16 00:34] VITALS: BP 98/51
[2019-02-16 05:12] VITALS: BP 109/63
[2019-02-16 06:59] LABS: HEMATOCRIT 34.1 % (36-46); HEMOGLOBIN 12.1 g/dL (12.0-16.0); MEAN CORPUSCULAR HEMOGLOBIN 35.5 pg (26.0-34.0); MEAN CORPUSCULAR HGB CONC 35.6 G/dL (31.0-37.0); MEAN CORPUSCULAR VOLUME 100 fL (80-100); PLATELET COUNT (AUTO) 477 K/uL (150-450); RED BLOOD CELL COUNT(AUTO) 3.42 MIL/uL (4.00-5.20); RED CELL DISTRIBUTION WIDTH 13.3 % (11.5-14.5)
[2019-02-16 07:05] VITALS: BP 100/59
[2019-02-16 07:25] LABS: ANION GAP 8 mmol/L (8-16); CALCIUM, TOTAL 8.3 mg/dL (8.8-10.5); CARBON DIOXIDE 26 mmol/L (22-29); CHLORIDE 101 mmol/L (98-107); CREATININE 0.56 mg/dL (0.60-1.30); GLOMERULAR FILTR. RATE CALC > 60 mL/min (>60); GLUCOSE,RANDOM 88 mg/dL (70-110); POTASSIUM 4.3 mmol/L (3.5-5.1); SODIUM SERUM 135 mmol/L (136-145); UREA NITROGEN, BLOOD 11 mg/dL (7-18)
[2019-02-16 08:23] LABS: BAND NEUTROPHILS % (MANUAL) 2 % (0-5); LYMPHOCYTES % (MANUAL) 50 % (22-44); MONOCYTES % (MANUAL) 6 % (2-9); SEGMENTED NEUTROPHILS % 42 % (40-70)
[2019-02-16] MEDS: CloZAPine 25 MG TABLET PO SCH ×2 (08:34→14:07)
[2019-02-16] MEDS: CefTRIAXone 1 GM/DEXTROSE 50 ML IV SCH (08:34)
[2019-02-16 11:02] VITALS: BP 120/73
[2019-02-16 15:34] VITALS: BP 109/69
== END 2019-02-16 15:45 | disposition home or self-care (01) | DRG 690 ==
LOC: EMS 14:36 → ICU 18:40 → 5N 02-15 05:55
PROVIDERS: ADMIT Internal Medicine; ATTEND Internal Medicine
DX: N39.0 Urinary tract infection, site not specified (principal); E87.1 Hypo-osmolality and hyponatremia; R65.10 Systemic inflammatory response syndrome (SIRS) of non-infectious origin without acute organ dysfunction; F20.0 Paranoid schizophrenia; D64.9 Anemia, unspecified; R63.1 Polydipsia; B96.20 Unspecified Escherichia coli [E. coli] as the cause of diseases classified elsewhere; E87.79 Other fluid overload; F32.9 Major depressive disorder, single episode, unspecified; Z87.440 Personal history of urinary (tract) infections; Z28.21 Immunization not carried out because of patient refusal; Z79.899 Other long term (current) drug therapy
CPT/HCPCS: 70450; 82533; 82570; 83036; 83935; 84156; 84295; 84300; 84439; 84443; 87081; 87086; 93005; 99291; G0378; G0480; J0696; J2060; J2250; J2597; J7030; J7050; J7060

== ENCOUNTER 2019-05-16 09:17 | Inpatient (IN) | payer MEDICARE, OTHER ==
[~2019-05-16] VITALS: Ht 162.6 cm; Wt 60.8 kg
[2019-05-16 10:34] LABS: BILIRUBIN,URINE NEGATIVE (NEGATIVE); GLUCOSE, URINE (UA) 250 mg/dL (NEGATIVE); KETONES,URINE 15 mg/dL (NEGATIVE); NITRATE,URINE NEGATIVE (NEGATIVE); OCCULT BLOOD,URINE TRACE (NEGATIVE); PH,URINE 5.5 (5.0-8.0); PROTEIN,URINE NEGATIVE (NEGATIVE); UROBILINOGEN,URINE 0.2 mg/dL (<=1.0)
[2019-05-16 10:35] LABS: APPEARANCE,URINE HAZY (CLEAR)
[2019-05-16 10:38] LABS: LEUKOCYTE ESTERASE ,URINE SMALL (NEGATIVE)
[2019-05-16 10:39] LABS: BACTERIA,URINE None Seen /HPF (None Seen); RBC,URINE 0-2 /HPF (0-2)
[2019-05-16 10:40] LABS: AMPHET/METH SCREEN,URINE NEGATIVE (NEGATIVE); BARBITURATE SCREEN, URINE NEGATIVE (NEGATIVE); BENZODIAZEPINES SCREEN,URINE NEGATIVE (NEGATIVE); CANNABINOID SCREEN,URINE NEGATIVE (NEGATIVE); COCAINE SCREEN,URINE NEGATIVE (NEGATIVE); METHADONE SCREEN, URINE NEGATIVE (NEGATIVE); OPIATE SCREEN,URINE NEGATIVE (NEGATIVE)
[2019-05-16 10:41] LABS: PHENCYCLIDINE SCREEN,URINE NEGATIVE (NEGATIVE)
[2019-05-16] MEDS ORDERED: LevETIRAcetam 1,000 MG in DEXTROSE 5%-WATER 100 ML IV ONE (10:45)
[2019-05-16 10:51] LABS: HEMATOCRIT 35.3 % (36-46); HEMOGLOBIN 12.4 g/dL (12.0-16.0); MEAN CORPUSCULAR HGB CONC 35.1 G/dL (31.0-37.0); MEAN CORPUSCULAR VOLUME 94 fL (80-100); PLATELET COUNT (AUTO) 236 K/uL (150-450); RED BLOOD CELL COUNT(AUTO) 3.75 MIL/uL (4.00-5.20); RED CELL DISTRIBUTION WIDTH 13.7 % (11.5-14.5)
[2019-05-16 10:52] LABS: GLUCOSE,POINT OF CARE 148 MG/DL (70-110)
[2019-05-16] MEDS ORDERED: PIPERACILLIN/TAZO 3.375 GM/D5W 50 ML IV ONE (11:00)
[2019-05-16] MEDS ORDERED: VANCOMYCIN HCL 1 GM/D5% WATER 200 ML IV ONE (11:00)
[2019-05-16 11:04] LABS: INR 1.1 (0.9-1.1); PROTHROMBIN TIME 10.9 SEC (9.4-11.6)
[2019-05-16 11:10] LABS: AMMONIA 21 umol/L (11-32); TROPONIN I < 0.02 ng/mL (0.00-0.05)
[2019-05-16 11:14] LABS: BAND NEUTROPHILS % (MANUAL) 17 % (0-5); LYMPHOCYTES % (MANUAL) 17 % (22-44); MONOCYTES % (MANUAL) 5 % (2-9); SEGMENTED NEUTROPHILS % 61 % (40-70)
[2019-05-16 11:16] LABS: ALANINE AMINOTRANSFERASE 23 U/L (12-78); ALBUMIN 3.2 g/dL (3.4-5.0); ALKALINE PHOSPHATASE 71 U/L (46-116); ASPARTATE AMINOTRANSFERASE 27 U/L (15-37); BILIRUBIN,TOTAL 0.4 mg/dL (0.1-1.0); CALCIUM, TOTAL 7.6 mg/dL (8.8-10.5); CARBON DIOXIDE 19 mmol/L (22-29); CREATINE KINASE, TOTAL ONLY 373 U/L (26-192); CREATININE 0.64 mg/dL (0.60-1.30); GLOMERULAR FILTR. RATE CALC > 60 mL/min (>60); GLUCOSE,RANDOM 156 mg/dL (70-110); TOTAL PROTEIN, SERUM 6.5 g/dL (6.4-8.2); UREA NITROGEN, BLOOD 4 mg/dL (7-18)
[2019-05-16 11:17] LABS: ANION GAP 13 mmol/L (8-16); CHLORIDE 78 mmol/L (98-107)
[2019-05-16 11:19] LABS: POTASSIUM 2.8 mmol/L (3.5-5.1); SODIUM SERUM 110 mmol/L (136-145)
[2019-05-16] MEDS ORDERED: SODIUM CHLORIDE 3% 500 ML IV ONE ×2 (11:30→11:45)
[2019-05-16] MEDS ORDERED: SODIUM CHLORIDE 0.9% 1,000 ML IV ONE (11:30)
[2019-05-16] MEDS: POTASSIUM CHL 10 MEQ/WATER 50 ML IV SCH ×3 (12:30→15:35)
[2019-05-16] MEDS ORDERED: ACETAMINOPHEN 325 MG TABLET PO PRN (13:00)
[2019-05-16] MEDS ORDERED: ONDANSETRON HCL 4 MG/2 ML VIAL IVP PRN (13:00)
[2019-05-16] MEDS ORDERED: LORazepam 2 MG/ML VIAL IVP PRN (13:00)
[2019-05-16] MEDS ORDERED: BISACODYL 10 MG RECTAL RECTAL SUPPOSITORY PR PRN (13:00)
[2019-05-16] MEDS ORDERED: POTASSIUM CHL 10 MEQ/WATER 50 ML IV PRN (13:15)
[2019-05-16] MEDS ORDERED: POTASSIUM CHLORIDE 20 MEQ ER TABLET PO PRN (13:15)
[2019-05-16 14:20] VITALS: BP 133/70
[2019-05-16] MEDS: PIPERACILLIN/TAZO 3.375 GM/D5W 50 ML IV SCH ×2 (15:00→21:09)
[2019-05-16 15:08] LABS: ANION GAP 9 mmol/L (8-16); CALCIUM, TOTAL 7.6 mg/dL (8.8-10.5); CARBON DIOXIDE 24 mmol/L (22-29); CHLORIDE 85 mmol/L (98-107); CREATININE 0.49 mg/dL (0.60-1.30); GLOMERULAR FILTR. RATE CALC > 60 mL/min (>60); GLUCOSE,RANDOM 125 mg/dL (70-110); POTASSIUM 3.4 mmol/L (3.5-5.1); UREA NITROGEN, BLOOD 2 mg/dL (7-18)
[2019-05-16 15:16] LABS: SODIUM SERUM 118 mmol/L (136-145)
[2019-05-16] MEDS ORDERED: SODIUM CHLORIDE 0.9% 250 ML IV ONE ×2 (15:57→21:12)
[2019-05-16 16:00] VITALS: BP 123/89
[2019-05-16 17:28] LABS: ANION GAP 9 mmol/L (8-16); CALCIUM, TOTAL 7.7 mg/dL (8.8-10.5); CARBON DIOXIDE 25 mmol/L (22-29); CHLORIDE 90 mmol/L (98-107); CREATININE 0.46 mg/dL (0.60-1.30); GLOMERULAR FILTR. RATE CALC > 60 mL/min (>60); GLUCOSE,RANDOM 116 mg/dL (70-110); POTASSIUM 3.6 mmol/L (3.5-5.1); UREA NITROGEN, BLOOD 3 mg/dL (7-18)
[2019-05-16 17:34] LABS: SODIUM SERUM 124 mmol/L (136-145)
[2019-05-16] MEDS ORDERED: DEXTROSE 5%-WATER 1,000 ML IV ONE (17:45)
[2019-05-16] MEDS ORDERED: INFLUENZA VIRUS VACCINE QVS 2019-20 (3YR+)/PF 60 MCG/0.5 ML SYRINGE IM ONE (17:45)
[2019-05-16 20:00] VITALS: BP 102/54
[2019-05-16 20:33] LABS: ANION GAP 8 mmol/L (8-16); CALCIUM, TOTAL 7.9 mg/dL (8.8-10.5); CARBON DIOXIDE 25 mmol/L (22-29); CHLORIDE 92 mmol/L (98-107); CREATININE 0.59 mg/dL (0.60-1.30); GLOMERULAR FILTR. RATE CALC > 60 mL/min (>60); GLUCOSE,POINT OF CARE 133 MG/DL (70-110); GLUCOSE,RANDOM 134 mg/dL (70-110); POTASSIUM 3.6 mmol/L (3.5-5.1); SODIUM SERUM 125 mmol/L (136-145); UREA NITROGEN, BLOOD 3 mg/dL (7-18)
[2019-05-16] MEDS ORDERED: DESMOPRESSIN ACETATE 2 MCG in SODIUM CHLORIDE 0.9% 50 ML IV ONE (21:00)
[2019-05-16] MEDS: DEXTROSE 5%-WATER 1,000 ML IV SCH (21:07)
[2019-05-17] VITALS: BP 95/58
[2019-05-17 01:07] LABS: ANION GAP 5 mmol/L (8-16); CALCIUM, TOTAL 7.9 mg/dL (8.8-10.5); CARBON DIOXIDE 28 mmol/L (22-29); CHLORIDE 91 mmol/L (98-107); CREATININE 0.64 mg/dL (0.60-1.30); GLOMERULAR FILTR. RATE CALC > 60 mL/min (>60); GLUCOSE,RANDOM 136 mg/dL (70-110); POTASSIUM 4.1 mmol/L (3.5-5.1); UREA NITROGEN, BLOOD 3 mg/dL (7-18)
[2019-05-17 01:10] LABS: SODIUM SERUM 124 mmol/L (136-145)
[2019-05-17] MEDS: DEXTROSE 5%-WATER 1,000 ML IV SCH (02:33)
[2019-05-17] MEDS: VANCOMYCIN HCL 1 GM/D5% WATER 200 ML IV SCH ×4 (02:36→23:45)
[2019-05-17] MEDS: PIPERACILLIN/TAZO 3.375 GM/D5W 50 ML IV SCH ×4 (03:06→22:02)
[2019-05-17 04:00] VITALS: BP 122/54
[2019-05-17] MEDS ORDERED: DEXTROSE 5%-WATER 1,000 ML IV SCH (04:00)
[2019-05-17 05:29] LABS: ANION GAP 7 mmol/L (8-16); CALCIUM, TOTAL 7.6 mg/dL (8.8-10.5); CARBON DIOXIDE 25 mmol/L (22-29); CHLORIDE 89 mmol/L (98-107); GLOMERULAR FILTR. RATE CALC > 60 mL/min (>60); GLUCOSE,RANDOM 147 mg/dL (70-110); PHOSPHORUS 2.9 mg/dL (2.5-4.9); POTASSIUM 3.7 mmol/L (3.5-5.1); THYROID STIMULATING HORMONE 1.93 uIU/mL (0.36-3.74); UREA NITROGEN, BLOOD 4 mg/dL (7-18)
[2019-05-17 05:38] LABS: SODIUM SERUM 121 mmol/L (136-145)
[2019-05-17 08:00] VITALS: BP 132/72
[2019-05-17] MEDS ORDERED: MAGNESIUM SULFATE 2 GM/WATER 50 ML IV ONE (08:30)
[2019-05-17 08:56] LABS: ANION GAP 6 mmol/L (8-16); CALCIUM, TOTAL 7.9 mg/dL (8.8-10.5); CARBON DIOXIDE 25 mmol/L (22-29); CHLORIDE 90 mmol/L (98-107); GLOMERULAR FILTR. RATE CALC > 60 mL/min (>60); GLUCOSE,RANDOM 80 mg/dL (70-110); POTASSIUM 3.9 mmol/L (3.5-5.1); UREA NITROGEN, BLOOD 5 mg/dL (7-18)
[2019-05-17 09:04] LABS: SODIUM SERUM 121 mmol/L (136-145)
[2019-05-17] MEDS: PANTOPRAZOLE SODIUM 40 MG/VIAL IVP SCH (09:35)
[2019-05-17] MEDS: DEXTROSE 5%-WATER 500 ML IV SCH ×3 (11:46→23:51)
[2019-05-17 12:00] VITALS: BP 125/76
[2019-05-17 16:46] VITALS: BP 120/69
[2019-05-17 18:16] LABS: ANION GAP 6 mmol/L (8-16); CALCIUM, TOTAL 7.9 mg/dL (8.8-10.5); CARBON DIOXIDE 28 mmol/L (22-29); CHLORIDE 91 mmol/L (98-107); CREATININE 0.66 mg/dL (0.60-1.30); GLOMERULAR FILTR. RATE CALC > 60 mL/min (>60); GLUCOSE,RANDOM 106 mg/dL (70-110); POTASSIUM 3.5 mmol/L (3.5-5.1); SODIUM SERUM 125 mmol/L (136-145); UREA NITROGEN, BLOOD 5 mg/dL (7-18)
[2019-05-17 19:37] VITALS: BP 108/60
[2019-05-17 22:24] LABS: ANION GAP 7 mmol/L (8-16); CALCIUM, TOTAL 8.1 mg/dL (8.8-10.5); CARBON DIOXIDE 26 mmol/L (22-29); CHLORIDE 95 mmol/L (98-107); GLOMERULAR FILTR. RATE CALC > 60 mL/min (>60); GLUCOSE,RANDOM 118 mg/dL (70-110); POTASSIUM 3.8 mmol/L (3.5-5.1); SODIUM SERUM 128 mmol/L (136-145); UREA NITROGEN, BLOOD 8 mg/dL (7-18)
[2019-05-17] MEDS ORDERED: DESMOPRESSIN ACETATE 2 MCG in SODIUM CHLORIDE 0.9% 50 ML IV ONE (23:00)
[2019-05-18 00:01] VITALS: BP 112/68
[2019-05-18] MEDS: PIPERACILLIN/TAZO 3.375 GM/D5W 50 ML IV SCH ×4 (04:06→20:22)
[2019-05-18] MEDS: DEXTROSE 5%-WATER 500 ML IV SCH (04:18)
[2019-05-18 04:39] VITALS: BP 106/64
[2019-05-18 04:50] LABS: BASOPHILS % (AUTO) 0.8 % (0.0-2.0); EOSINOPHILS % (AUTO) 0.6 % (1.0-6.0); HEMATOCRIT 33.9 % (36-46); HEMOGLOBIN 11.9 g/dL (12.0-16.0); LYMPHOCYTES # (AUTO) 3.3 K/uL (1.0-4.8); LYMPHOCYTES % (AUTO) 43.8 % (22.0-44.0); MEAN CORPUSCULAR HEMOGLOBIN 32.8 pg (26.0-34.0); MEAN CORPUSCULAR HGB CONC 35.1 G/dL (31.0-37.0); MEAN CORPUSCULAR VOLUME 94 fL (80-100); MONOCYTES % (AUTO) 12.6 % (2.0-9.0); NEUTROPHILS # (AUTO) 3.2 K/uL (1.8-7.7); NEUTROPHILS % (AUTO) 42.2 % (40.0-70.0); PLATELET COUNT (AUTO) 270 K/uL (150-450); RED BLOOD CELL COUNT(AUTO) 3.63 MIL/uL (4.00-5.20); RED CELL DISTRIBUTION WIDTH 14.7 % (11.5-14.5)
[2019-05-18 05:05] LABS: ANION GAP 7 mmol/L (8-16); CALCIUM, TOTAL 8.3 mg/dL (8.8-10.5); CARBON DIOXIDE 25 mmol/L (22-29); CHLORIDE 94 mmol/L (98-107); CREATININE 0.73 mg/dL (0.60-1.30); GLOMERULAR FILTR. RATE CALC > 60 mL/min (>60); GLUCOSE,RANDOM 104 mg/dL (70-110); POTASSIUM 4.1 mmol/L (3.5-5.1); SODIUM SERUM 126 mmol/L (136-145); UREA NITROGEN, BLOOD 10 mg/dL (7-18); VANCOMYCIN,RANDOM 22.5 mcg/mL (25.0-50.0)
[2019-05-18 07:35] VITALS: BP 119/69
[2019-05-18] MEDS: VANCOMYCIN HCL 1 GM/D5% WATER 200 ML IV SCH ×3 (08:47→23:06)
[2019-05-18] MEDS: PANTOPRAZOLE SODIUM 40 MG/VIAL IVP SCH (08:49)
[2019-05-18 08:52] LABS: ANION GAP 7 mmol/L (8-16); CALCIUM, TOTAL 8.6 mg/dL (8.8-10.5); CARBON DIOXIDE 26 mmol/L (22-29); CHLORIDE 95 mmol/L (98-107); CREATININE 0.84 mg/dL (0.60-1.30); GLOMERULAR FILTR. RATE CALC > 60 mL/min (>60); GLUCOSE,RANDOM 118 mg/dL (70-110); SODIUM SERUM 128 mmol/L (136-145); UREA NITROGEN, BLOOD 9 mg/dL (7-18)
[2019-05-18 12:03] VITALS: BP 121/70
[2019-05-18 13:48] LABS: ANION GAP 5 mmol/L (8-16); CALCIUM, TOTAL 8.2 mg/dL (8.8-10.5); CARBON DIOXIDE 27 mmol/L (22-29); CHLORIDE 96 mmol/L (98-107); CREATININE 0.85 mg/dL (0.60-1.30); GLOMERULAR FILTR. RATE CALC > 60 mL/min (>60); GLUCOSE,RANDOM 107 mg/dL (70-110); POTASSIUM 4.3 mmol/L (3.5-5.1); SODIUM SERUM 128 mmol/L (136-145); UREA NITROGEN, BLOOD 10 mg/dL (7-18)
[2019-05-18] MEDS ORDERED: SODIUM CHLORIDE 0.9% 250 ML IV ONE (14:17)
[2019-05-18 15:23] VITALS: BP 126/78
[2019-05-18 20:08] VITALS: BP 113/64
[2019-05-19 00:13] VITALS: BP 109/62
[2019-05-19] MEDS: PIPERACILLIN/TAZO 3.375 GM/D5W 50 ML IV SCH ×4 (02:51→20:11)
[2019-05-19 04:45] VITALS: BP 113/66
[2019-05-19] MEDS: VANCOMYCIN HCL 1 GM/D5% WATER 200 ML IV SCH ×3 (06:06→23:02)
[2019-05-19 07:58] VITALS: BP 122/68
[2019-05-19] MEDS ORDERED: SODIUM CHLORIDE 0.9% 250 ML IV ONE (08:07)
[2019-05-19 08:19] LABS: BASOPHILS % (AUTO) 0.8 % (0.0-2.0); EOSINOPHILS % (AUTO) 0.3 % (1.0-6.0); HEMATOCRIT 35.1 % (36-46); HEMOGLOBIN 12.4 g/dL (12.0-16.0); LYMPHOCYTES # (AUTO) 2.7 K/uL (1.0-4.8); LYMPHOCYTES % (AUTO) 22.2 % (22.0-44.0); MEAN CORPUSCULAR HEMOGLOBIN 33.6 pg (26.0-34.0); MEAN CORPUSCULAR HGB CONC 35.3 G/dL (31.0-37.0); MEAN CORPUSCULAR VOLUME 95 fL (80-100); MONOCYTES # (AUTO) 1.5 K/uL (0.1-1.0); MONOCYTES % (AUTO) 12.1 % (2.0-9.0); NEUTROPHILS % (AUTO) 64.6 % (40.0-70.0); PLATELET COUNT (AUTO) 303 K/uL (150-450); RED BLOOD CELL COUNT(AUTO) 3.69 MIL/uL (4.00-5.20); RED CELL DISTRIBUTION WIDTH 14.7 % (11.5-14.5)
[2019-05-19 08:33] LABS: ANION GAP 7 mmol/L (8-16); CARBON DIOXIDE 27 mmol/L (22-29); CHLORIDE 103 mmol/L (98-107); CREATININE 0.93 mg/dL (0.60-1.30); GLOMERULAR FILTR. RATE CALC > 60 mL/min (>60); GLUCOSE,RANDOM 110 mg/dL (70-110); POTASSIUM 4.1 mmol/L (3.5-5.1); SODIUM SERUM 137 mmol/L (136-145); UREA NITROGEN, BLOOD 14 mg/dL (7-18)
[2019-05-19] MEDS: PANTOPRAZOLE SODIUM 40 MG/VIAL IVP SCH (09:43)
[2019-05-19] MEDS: DEXTROSE 5%-WATER 1,000 ML IV SCH (09:43)
[2019-05-19 11:47] VITALS: BP 117/74
[2019-05-19 14:45] LABS: ANION GAP 7 mmol/L (8-16); CALCIUM, TOTAL 9.1 mg/dL (8.8-10.5); CARBON DIOXIDE 28 mmol/L (22-29); CHLORIDE 106 mmol/L (98-107); CREATININE 0.72 mg/dL (0.60-1.30); GLOMERULAR FILTR. RATE CALC > 60 mL/min (>60); GLUCOSE,RANDOM 108 mg/dL (70-110); SODIUM SERUM 141 mmol/L (136-145); UREA NITROGEN, BLOOD 15 mg/dL (7-18)
[2019-05-19 15:26] VITALS: BP 129/78
[2019-05-19 19:42] VITALS: BP 110/70
[2019-05-19 21:23] LABS: ANION GAP 6 mmol/L (8-16); CALCIUM, TOTAL 8.6 mg/dL (8.8-10.5); CARBON DIOXIDE 31 mmol/L (22-29); CHLORIDE 101 mmol/L (98-107); CREATININE 0.91 mg/dL (0.60-1.30); GLOMERULAR FILTR. RATE CALC > 60 mL/min (>60); GLUCOSE,RANDOM 100 mg/dL (70-110); POTASSIUM 3.4 mmol/L (3.5-5.1); SODIUM SERUM 138 mmol/L (136-145); UREA NITROGEN, BLOOD 11 mg/dL (7-18)
[2019-05-20] MEDS: DEXTROSE 5%-WATER 1,000 ML IV SCH ×2 (00:10→11:17)
[2019-05-20 00:14] VITALS: BP 122/65
[2019-05-20] MEDS: PIPERACILLIN/TAZO 3.375 GM/D5W 50 ML IV SCH ×3 (02:04→14:35)
[2019-05-20 04:24] VITALS: BP 112/56
[2019-05-20] MEDS: VANCOMYCIN HCL 1 GM/D5% WATER 200 ML IV SCH (06:56)
[2019-05-20 07:37] VITALS: BP 115/73
[2019-05-20 07:50] LABS: BASOPHILS % (AUTO) 0.6 % (0.0-2.0); EOSINOPHILS % (AUTO) 1.4 % (1.0-6.0); HEMATOCRIT 43.4 % (36-46); HEMOGLOBIN 14.9 g/dL (12.0-16.0); LYMPHOCYTES # (AUTO) 2.3 K/uL (1.0-4.8); LYMPHOCYTES % (AUTO) 27.5 % (22.0-44.0); MEAN CORPUSCULAR HEMOGLOBIN 33.1 pg (26.0-34.0); MEAN CORPUSCULAR HGB CONC 34.3 G/dL (31.0-37.0); MEAN CORPUSCULAR VOLUME 97 fL (80-100); MONOCYTES # (AUTO) 0.7 K/uL (0.1-1.0); MONOCYTES % (AUTO) 8.2 % (2.0-9.0); NEUTROPHILS # (AUTO) 5.3 K/uL (1.8-7.7); NEUTROPHILS % (AUTO) 62.3 % (40.0-70.0); PLATELET COUNT (AUTO) 266 K/uL (150-450); RED BLOOD CELL COUNT(AUTO) 4.49 MIL/uL (4.00-5.20); RED CELL DISTRIBUTION WIDTH 14.8 % (11.5-14.5)
[2019-05-20 08:27] LABS: ALANINE AMINOTRANSFERASE 27 U/L (12-78); ALBUMIN 2.8 g/dL (3.4-5.0); ALKALINE PHOSPHATASE 53 U/L (46-116); ANION GAP 10 mmol/L (8-16); ASPARTATE AMINOTRANSFERASE 21 U/L (15-37); BILIRUBIN,TOTAL 0.5 mg/dL (0.1-1.0); CALCIUM, TOTAL 8.8 mg/dL (8.8-10.5); CARBON DIOXIDE 25 mmol/L (22-29); CHLORIDE 103 mmol/L (98-107); CREATININE 0.85 mg/dL (0.60-1.30); GLOMERULAR FILTR. RATE CALC > 60 mL/min (>60); GLUCOSE,RANDOM 113 mg/dL (70-110); SODIUM SERUM 138 mmol/L (136-145); TOTAL PROTEIN, SERUM 6.3 g/dL (6.4-8.2); UREA NITROGEN, BLOOD 8 mg/dL (7-18); VANCOMYCIN,RANDOM 27.9 mcg/mL (25.0-50.0)
[2019-05-20] MEDS: PANTOPRAZOLE SODIUM 40 MG/VIAL IVP SCH (11:17)
[2019-05-20 11:36] VITALS: BP 108/68
[2019-05-20 15:39] VITALS: BP 100/60
[2019-05-20] MEDS ORDERED: VANCOMYCIN HCL 750 MG in DEXTROSE 5%-WATER 250 ML IV SCH (23:00)
[2019-06-27] MEDS ORDERED: HALO10 PO (16:02)
[2019-06-27] MEDS ORDERED: D-ME473S53 PO (16:02)
[2019-06-27] MEDS ORDERED: MAGOX PO (16:02)
[2019-06-27] MEDS ORDERED: TRAZ150 PO (16:02)
[2019-06-27] MEDS ORDERED: CHLO100T24 PO (16:02)
[2019-06-27] MEDS ORDERED: VALP250S23 PO (16:02)
[2019-07-06] MEDS ORDERED: CHLO100T24 PO (12:05)
[2019-07-06] MEDS ORDERED: CLOZ25TA4 PO (12:06)
[2019-07-06] MEDS ORDERED: ACET-784 PO (12:10)
[2019-07-06] MEDS ORDERED: BISA10SU11 PR (12:12)
[2019-07-06] MEDS ORDERED: HYDR-4119 PO (12:14)
[2019-07-06] MEDS ORDERED: MOM30 PO (12:15)
== END 2019-05-20 17:53 | DRG 640 ==
LOC: EMS 09:19 → ICU 12:34 → 5N 14:12 → 5S 05-17 16:20 → 5N 05-17 20:05
PROVIDERS: ADMIT Internal Medicine; ATTEND Internal Medicine
DX: E87.1 Hypo-osmolality and hyponatremia (principal); G93.41 Metabolic encephalopathy; R65.10 Systemic inflammatory response syndrome (SIRS) of non-infectious origin without acute organ dysfunction; F20.0 Paranoid schizophrenia; R56.9 Unspecified convulsions; E87.2 Acidosis; R63.1 Polydipsia; E87.6 Hypokalemia; D64.9 Anemia, unspecified; D72.829 Elevated white blood cell count, unspecified; E83.42 Hypomagnesemia; R32 Unspecified urinary incontinence; H51.8 Other specified disorders of binocular movement; Z79.899 Other long term (current) drug therapy
CPT/HCPCS: 51702; 70450; 70544; 70551; 72125; 82533; 83605; 83735; 83930; 84100; 84132; 84295; 84443; 87040; 87081; 93005; 97116; 97162; 97165; 97535; 99291; C9113; G0378; J0712; J2543; J2597; J3370; J3475; J3480; J7030; J7050; J7060